=== PATIENT | male | born 1985 | race Two or more races ===

== ENCOUNTER 2017-10-06 22:34 | Emergency (ER) | payer MEDICAID ==
[~2017-10-06] VITALS: Ht 167.6 cm; Wt 79.8 kg
[2017-10-06] MEDS ORDERED: Cyclopentolate 1% Opth Sol 2ml BOTH EYES ONE (23:00)
[2017-10-06 23:06] VITALS: BP 108/72
[2017-10-06] MEDS ORDERED: Tetracaine 0.5% Opth 4ml Soln LEFT EYE ONE (23:45)
[2017-10-06] MEDS ORDERED: Tetracaine 0.5% Opth 4ml Soln RIGHT EYE ONE (23:45)
[2017-10-06] MEDS ORDERED: Fluorescein Strips ONE (23:53)
[2017-10-07] MEDS ORDERED: Fluorescein Strips BOTH EYES ONE
--- NOTE | 2017-10-07 00:07 | Emergency Room Report ---
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 [employer] Nothing flew into eyes recently No associated headache, nausea/vomiting, neck pain Doesnt wear contacts/eyeglasses Mom with diabetes Allergies: Coded Allergies: No Known Allergies (Unverified , 10/06/17) Patient History Past Medical History: none Past Surgical History: none Pertinent Family History: DM Social History: Denies: smoking, alcohol use, drug use Immunizations: UTD Reviewed Nursing Documentation: PMH: Agreed, PSxH: Agreed Nursing Documentation-PMH Past Medical History: No Stated History Review of Systems All Other Systems: negative except mentioned in HPI Physical Exam Vital Signs Date Time Temp Pulse Resp B/P (MAP) Pulse Ox O2 Delivery O2 Flow Rate FiO2 10/06/17 22:36 98.1 86 18 108/72 98 Room Air Sp02 EP Interpretation: reviewed, normal General Appearance: normal inspection, well appearing, no apparent distress, alert, GCS 15, non-toxic Head: atraumatic Eyes: bilateral eye PERRL, bilateral eye EOMI, bilateral eye Scleral Injection , bilateral eye other - no fluourescine uptake bilaterally; no FB on eyeball eversion ENT: normal ENT inspection, hearing grossly normal, normal voice Neck: normal inspection, full range of motion, supple, no bony tend Respiratory: normal inspection, lungs clear, normal breath sounds, no respiratory distress, no retraction, no wheezing Cardiovascular #1: regular rate, rhythm, no edema Gastrointestinal: normal inspection, normal bowel sounds, non tender, soft, no guarding, no hernia Genitourinary: no CVA tenderness Musculoskeletal: normal inspection, back normal, normal range of motion, Vee' s Sign negative Neurologic: normal inspection, alert, oriented x3, responsive, production director III-XII nml as tested, speech normal Psychiatric: normal inspection, judgement/insight normal, mood/affect normal Skin: normal inspection, normal color, no rash Medical Decision Making Diagnostic Impression: Primary Impression: Blurry vision, bilateral ER Course VSS. Afebrile Glucose normal - unlikely Diabetes Tonopen pressures: both eyes varied from 10-14 on multiple checks No corneal abrasions No vitreous hemorrhage or retinal detachment on my bedside ocular ultrasound Decreased itch, discharge from PO benadryl Decreased pain from tetracaine ?traumatic iritis vs vision limitation/need for eyeglasses/contacts No emergency condition requiring admission, further workup Advised PMD followup for Opthamologist followup for eyeglasses Last Vital Signs Date Time Temp Pulse Resp B/P (MAP) Pulse Ox O2 Delivery O2 Flow Rate FiO2 10/06/17 23:06 98.1 18 108/72 98 Room Air 10/06/17 22:36 86 Status: improved Disposition: HOME, SELF-CARE Referrals: NOT CHOSEN IPA/,REFERRING (PCP) JUAN DANIEL GREENFIELD M.D. Oct 07, 2017 00:07
[2017-10-07 00:19] VITALS: BP 108/72
== END 2017-10-07 00:19 | disposition home or self-care (01) ==
LOC: EMR 22:54
DX: H53.8 Other visual disturbances (principal); Z83.3 Family history of diabetes mellitus
CPT/HCPCS: 99284